=== PATIENT | female | born 1940 | race Caucasian/White ===

== ENCOUNTER 2016-07-14 13:27 | Emergency (ER) | payer MEDICARE ==
[~2016-07-14] VITALS: Ht 157.5 cm; Wt 92.0 kg
[2016-07-14 13:28] VITALS: BP 169/81; PULSE 95; RESP 17; TEMP 98.5; O2SAT 99
[2016-07-14] MEDS ORDERED: ATOR10TA15 PO (14:00)
[2016-07-14] MEDS ORDERED: CYAN1000P IM (14:00)
[2016-07-14] MEDS ORDERED: TYLETAB34 PO (14:00)
[2016-07-14] MEDS ORDERED: LEVO175T2 PO (14:00)
[2016-07-14] MEDS ORDERED: JANU50TA8 PO (14:00)
[2016-07-14] MEDS ORDERED: ASPI81CH CHEW (14:00)
[2016-07-14] MEDS ORDERED: NATE120T PO (14:00)
--- NOTE | 2016-07-14 14:22 | PD ---
HPI Chief Complaint: Back/ Neck Pain or Injury Time Seen by Provider: 14:18 Travel History International Travel<30 days: No Contact w/Intl Traveler<30days: No Traveled to known affect area: No History of Present Illness HPI 76-year-old female presents to the emergency department for evaluation of right shoulder pain and bilateral buttock pain that radiates down her bilateral legs for 2.5 months. Patient states that she lives in [place]. She came down here in May leave the end of July. She reports a fall in March, but no recent fall. Patient has not followed up with a primary care physician due to not having one in this area. She states the pain is worse with movement. No fevers. No loss of bowel or bladder control. No saddle anesthesias. Patient was seen at urgent care and had an x-ray done on July 07 which showed a compression deformity superior endplate of L1, age indeterminate with 20% loss of disc height, multilevel degenerative changes of the lumbar spine. She was given prescription for tramadol, which she no longer has. She states did not help her pain. She does have an order for an outpatient MRI which is scheduled for tomorrow. The patient is requesting to have this done today. Her like her to be admitted for pain. PFSH Past Medical History Cancer: Yes Diabetes: Yes Patient Takes Glucophage: No Social History Alcohol Use: No Tobacco Use: No Substance Use: No Allergies-Medications (Allergen,Severity, Reaction): Coded Allergies: No Known Allergies (Unverified , 07/14/16) Reported Meds & Prescriptions Reported Meds & Active Scripts Active Reported Tylenol-Codeine #3 (Acetaminophen-Codeine) 300-30 mg Tab 1 Tab PO Q8HR PRN Cyanocobalamin Inj (Cyanocobalamin) 1,000 Mcg/Ml Inj 1,000 Mcg IM ONCE Janumet (Sitagliptin-Metformin) 50-1,000 Mg Tab 1 Tab PO BID Atorvastatin (Atorvastatin Calcium) 10 Mg Tab 10 Mg PO HS Nateglinide 120 Mg Tab 120 Mg PO TIDAC Aspirin 81 Mg Chew 81 Mg CHEW DAILY Levothyroxine (Levothyroxine Sodium) 175 Mcg Tab 175 Mcg PO DAILY Review of Systems Except as stated in HPI: all other systems reviewed are Neg Physical Exam Narrative GENERAL: Well-nourished, well-developed elderly female patient, ambulatory. Afebrile. SKIN: Focused skin assessment warm/dry. HEAD: Normocephalic. Atraumatic. EYES: No scleral icterus. No injection or drainage. NECK: Supple, trachea midline. No JVD or lymphadenopathy. CARDIOVASCULAR: Regular rate and rhythm without murmurs, gallops, or rubs. Bilateral radial and pedal pulses 2+. RESPIRATORY: Breath sounds equal bilaterally. No accessory muscle use. Lungs sounds are clear to auscultation GASTROINTESTINAL: Abdomen soft, non-tender, nondistended. MUSCULOSKELETAL: No cyanosis, or edema. Bilateral upper and lower extremity strength 5/5. All extremities are neurovascularly intact. BACK: Nontender without obvious deformity. No CVA tenderness. No midline spinal tenderness. No clonus. Data Data Last Documented VS Vital Signs Date Time Temp Pulse Resp B/P Pulse Ox O2 Delivery O2 Flow Rate FiO2 07/14/16 13:28 98.5 95 17 169/81 99 Orders Acetamin-Hydrocod 325-5 Mg ([place] 5-325 (07/14/16 14:30) Methocarbamol (Robaxin) (07/14/16 14:30) [facility] Medical Decision Making Medical Screen Exam Complete: Yes Emergency Medical Condition: Yes Medical Record Reviewed: Yes Differential Diagnosis Sciatica versus compression fracture versus chronic pain Narrative Course 76-year-old female presents to the emergency department for evaluation of bilateral buttock pain that radiates down her legs for 2.5 months. She has an outpatient MRI ordered to be done tomorrow. It should the patient that she needs to have this done. I discussed the case with my attending physician, Dr. Cotton, who agrees and plan and disposition. She is given Lortab 5/325 mg by mouth in the emergency department as well as Robaxin 500 mg by mouth. I will discharge her with similar prescriptions. She is instructed to get her MRI completed and all up with a primary care physician. Patient verbalizes agreement and understanding. She is return for any acute worsening of symptoms. Diagnosis Primary Impression: Sciatica Qualified Code: M54.31 - Bilateral sciatica Referrals: Primary Care Physician call for appointment Patient Instructions: General Instructions, Sciatica (ED) Additional Instructions: Take Lortab as started as needed for pain. Caution this can make you drowsy so do not drive after taking. Take Robaxin as directed as needed. Take Colace twice daily while on Lortab to prevent constipation. Complete outpatient MRI as ordered. Follow-up with your primary care physician. Return to the emergency department for any acute worsening of symptoms. Med/Other Pt SpecificInfo: Prescription(s) given Scripts Docusate Sodium (Colace)100 Mg [id number] Mg PO BID PRN (Constipation) #20 CAP Ref 0 Prov:Lisa Herzog 07/14/16 Methocarbamol (Robaxin)750 Mg [id number] Mg PO TID PRN (MUSCLE SPASM) #21 TAB Ref 0 Prov:Lisa Herzog 07/14/16 Hydrocodone-Acetaminophen (Lortab)5-325 Mg Tab1 Tab PO Q6H PRN (PAIN) #16 TAB Ref 0 Prov:Aishwarya Cotton MD 07/14/16 Disposition: 01 DISCHARGE HOME Condition: Stable Lisa Herzog Jul 14, 2016 14:21
[2016-07-14] MEDS ORDERED: HYDR-3533 PO (14:24)
[2016-07-14] MEDS ORDERED: COLA100C3 PO (14:27)
[2016-07-14] MEDS ORDERED: ROBA750T PO (14:27)
[2016-07-14] MEDS ORDERED: METHOCARBAMOL 500 MG TAB PO ONE (14:30)
[2016-07-14] MEDS ORDERED: ACETAMINOPHEN/HYDROcodone 325 MG/5 MG TAB PO ONE (14:30)
== END 2016-07-14 14:51 | disposition home or self-care (01) ==
LOC: NEPD 13:27
DX: M54.31 Sciatica, right side (principal); M54.32 Sciatica, left side; M25.511 Pain in right shoulder; E11.9 Type 2 diabetes mellitus without complications
CPT/HCPCS: 99283